=== PATIENT | male | born 1950 | race Caucasian/White ===

== ENCOUNTER 2018-05-23 09:21 | Emergency (ER) | payer MEDICARE, OTHER | END 2018-05-23 10:06 | disposition home or self-care (01) | LOC: NAV ERS 09:21 | DX: S39.012A Strain of muscle, fascia and tendon of lower back, initial encounter (principal); E78.5 Hyperlipidemia, unspecified; J44.9 Chronic obstructive pulmonary disease, unspecified; F17.210 Nicotine dependence, cigarettes, uncomplicated; M19.90 Unspecified osteoarthritis, unspecified site; Z79.899 Other long term (current) drug therapy; X50.1XXA Overexertion from prolonged static or awkward postures, initial encounter | CPT/HCPCS: 99283 ==

== ENCOUNTER 2018-07-05 12:22 | Emergency (ER) | payer MEDICARE, OTHER ==
[2018-07-05] MEDS ORDERED: predniSONE 20 MG TAB ONE (12:39)
[2018-07-05] MEDS ORDERED: predniSONE 10 MG TAB ONE (12:39)
[2018-07-05] MEDS ORDERED: Sodium Chloride For Inhalation 0.9% 3 ML NEB ONE (12:52)
== END 2018-07-05 13:49 | disposition home or self-care (01) ==
LOC: NAV ERS 12:22
DX: J44.1 Chronic obstructive pulmonary disease with (acute) exacerbation (principal); I10 Essential (primary) hypertension; M19.90 Unspecified osteoarthritis, unspecified site; E78.5 Hyperlipidemia, unspecified; F17.210 Nicotine dependence, cigarettes, uncomplicated; Z79.899 Other long term (current) drug therapy; Z79.891 Long term (current) use of opiate analgesic
CPT/HCPCS: 94640; 94644; 94760; J7506; J7512; J7620

== ENCOUNTER 2019-06-12 12:20 | Emergency (ER) | payer MEDICARE, OTHER | END 2019-06-12 12:54 | disposition home or self-care (01) | LOC: NAV ERS 12:20 | DX: M54.5 Low back pain (principal); J42 Unspecified chronic bronchitis; M19.90 Unspecified osteoarthritis, unspecified site; E78.5 Hyperlipidemia, unspecified; E78.00 Pure hypercholesterolemia, unspecified; J44.9 Chronic obstructive pulmonary disease, unspecified; F17.210 Nicotine dependence, cigarettes, uncomplicated; Z79.899 Other long term (current) drug therapy; Z79.51 Long term (current) use of inhaled steroids | CPT/HCPCS: 99283 ==

== ENCOUNTER 2021-08-09 16:44 | Emergency (ER) | payer MEDICARE, OTHER ==
[2021-08-09] MEDS ORDERED: Tetracaine HCl 0.5% Ophth Soln 2 ML Bottle ONE (17:30)
[2021-08-09] MEDS ORDERED: Fluorescein Opthalmic Strip ONE (17:30)
== END 2021-08-09 17:52 | disposition home or self-care (01) ==
LOC: NAV ERS 16:44
DX: H00.026 Hordeolum internum left eye, unspecified eyelid (principal); E78.5 Hyperlipidemia, unspecified; J44.9 Chronic obstructive pulmonary disease, unspecified; F17.210 Nicotine dependence, cigarettes, uncomplicated; Z79.899 Other long term (current) drug therapy
CPT/HCPCS: 99283

== ENCOUNTER 2022-08-13 17:03 | Emergency (ER) | payer MEDICARE, OTHER ==
[2022-08-13 17:50] LABS: #Basophils 0.1 thou/uL (0.0-0.2); #Lymphocytes 1.4 thou/uL (1.20-3.40); #Monocytes 0.7 thou/uL (0.11-0.59); #Neutrophils 6.8 thou/uL (1.40-6.50); %Eosinophils 0.5 % (0.0-10.0); %Lymphocytes 15.8 % (21.0-51.0); %Monocytes 7.5 % (0.0-10.0); %Neutrophils 75.1 % (42.0-75.0); Hemoglobin 13.7 g/dL (14.0-18.0); Mean Corpuscular HGB CONC 32.4 g/dL (32.0-36.0); Mean Corpuscular Hemoglobin 33.2 pg (27.0-31.0); Mean Platelet Volume 7.7 fL (7.4-10.4); Platelet Count 197 thou/uL (130-400); RBC Distribution Width 12.5 % (11.5-14.5); Red Blood Cell (RBC) Count 4.11 mill/uL (4.70-6.10)
[2022-08-13 18:26] LABS: ALT (SGPT) 17 U/L (8-55); AST (SGOT) 32 U/L (5-34); Albumin 3.6 g/dL (3.4-4.8); Alkaline Phosphatase 60 U/L (40-110); Anion Gap 18 mmol/L (10-20); BUN (Urea Nitrogen) 27 mg/dL (8.4-25.7); Bilirubin, Total 0.7 mg/dL (0.2-1.2); Calc. Creatinine Clearance 0 mL/min (70-130); Calcium 8.4 mg/dL (7.8-10.44); Carbon Dioxide 20 mmol/L (23-31); Chloride 104 mmol/L (98-107); Estimated GFR 51; Globulin 3.4 g/dL (2.4-3.5); Glucose 83 mg/dL (80-115); Potassium 3.8 mmol/L (3.5-5.1); Sodium 138 mmol/L (136-145)
[2022-08-13] MEDS ORDERED: Sulfameth/Trimethoprim DS 800-160mg TAB ONE (18:43)
[2022-08-13] MEDS ORDERED: Amoxicillin/Potassium Clav 875 MG TAB ONE (18:44)
== END 2022-08-13 18:56 | disposition home or self-care (01) ==
LOC: NAV ERS 17:03
DX: L03.116 Cellulitis of left lower limb (principal); E78.5 Hyperlipidemia, unspecified; E78.00 Pure hypercholesterolemia, unspecified; J44.9 Chronic obstructive pulmonary disease, unspecified; F17.210 Nicotine dependence, cigarettes, uncomplicated
CPT/HCPCS: 80053; 83605; 85025; 86140

== ENCOUNTER 2022-10-25 12:41 | Emergency (ER) | payer OTHER, MEDICAID ==
[2022-10-25] MEDS ORDERED: Ibuprofen 200 MG TAB ONE (13:11)
[2022-10-25] MEDS ORDERED: Dexamethasone 4 MG TAB ONE (13:11)
== END 2022-10-25 14:07 | disposition home or self-care (01) ==
LOC: NAV ERS 12:41
DX: J06.9 Acute upper respiratory infection, unspecified (principal); E11.9 Type 2 diabetes mellitus without complications; E78.5 Hyperlipidemia, unspecified; I10 Essential (primary) hypertension; F17.210 Nicotine dependence, cigarettes, uncomplicated; Z79.899 Other long term (current) drug therapy; Z20.822 Contact with and (suspected) exposure to COVID-19
CPT/HCPCS: 87804; 99283; J8540; U0003; U0005

== ENCOUNTER 2023-01-30 14:51 | Emergency (ER) | payer OTHER, MEDICAID ==
[2023-01-30] MEDS ORDERED: Bacitracin 1 PK ONE (16:18)
== END 2023-01-30 16:26 | disposition home or self-care (01) ==
LOC: NAV ERS 14:51
DX: S70.01XA Contusion of right hip, initial encounter (principal); L97.819 Non-pressure chronic ulcer of other part of right lower leg with unspecified severity; I10 Essential (primary) hypertension; J44.9 Chronic obstructive pulmonary disease, unspecified; F17.210 Nicotine dependence, cigarettes, uncomplicated; W01.0XXA Fall on same level from slipping, tripping and stumbling without subsequent striking against object, initial encounter